=== PATIENT | female | born 1990 | race Caucasian/White ===

== ENCOUNTER 2016-07-07 20:37 | Emergency (ER) | payer BC, OTHER ==
[~2016-07-07] VITALS: Ht 165.1 cm; Wt 49.9 kg
[2016-07-07 20:48] VITALS: BP 126/74
== END 2016-07-07 21:08 | disposition home or self-care (01) ==
LOC: ER 20:41
DX: L03.115 Cellulitis of right lower limb (principal); F17.210 Nicotine dependence, cigarettes, uncomplicated; I47.1 Supraventricular tachycardia; W57.XXXA Bitten or stung by nonvenomous insect and other nonvenomous arthropods, initial encounter; Y93.89 Activity, other specified; Y92.89 Other specified places as the place of occurrence of the external cause; Y99.8 Other external cause status
CPT/HCPCS: A4606; Z7610

== ENCOUNTER 2016-09-09 21:41 | Emergency (ER) | payer OTHER ==
[~2016-09-09] VITALS: Ht 144.8 cm; Wt 56.2 kg
--- NOTE | 2016-09-09 22:30 | NUR ---
PT PRESENTED TO THE ER WITH A C/O RT THIGH REDNESS, PAIN, EDEMA, WARM TO TOUCH S/P POSSIBLE INSECT BITE.
--- NOTE | 2016-09-09 23:25 | NUR ---
DR. LEES IS AT THE BEDSIDE.
[2016-09-09] MEDS ORDERED: HYDROCORTISONE 1% CREAM 28.35 GM TUBE TP ONE (23:26)
[2016-09-09] MEDS ORDERED: HYDROCORTISONE 1% CREAM 30 GM TUBE TP ONE (23:30)
--- NOTE | 2016-09-09 23:32 | NUR ---
HYDROCORTISONE 1% CREAM APPLIED TO INSECT BITE.
--- NOTE | 2016-09-10 00:03 | NUR ---
PT APPEARS TO BE RESTING COMFORTABLY WITH NO S/S OF PAIN OR DISTRESS.
[2016-09-10 00:05] VITALS: BP 143/90
== END 2016-09-10 00:06 | disposition home or self-care (01) ==
LOC: ER 21:42
DX: S70.361A Insect bite (nonvenomous), right thigh, initial encounter (principal); I47.1 Supraventricular tachycardia; W57.XXXA Bitten or stung by nonvenomous insect and other nonvenomous arthropods, initial encounter; Y93.89 Activity, other specified; Y92.89 Other specified places as the place of occurrence of the external cause; Y99.8 Other external cause status
CPT/HCPCS: 99282; A4606; Z7610